=== PATIENT | male | born 1960 | race Asian ===

== ENCOUNTER 2016-09-16 14:24 | Emergency (ER) | payer OTHER ==
[~2016-09-16] VITALS: Ht 152.4 cm; Wt 102.1 kg
[~2016-09-16 14:24] MED LIST: ALLEGRA ALRG180 M1 PO; AMOX500C85 PO; ASA LO-DOSE81 MG PO; BENICAR HCT1 TA2 PO; CYCL10TA35 PO; FLONASE0.05 %; FLUT0.05 NAS; MEDROL DOSEPAK4 MG OR; NEXIUM40 M1 PO; PREVACID30 MG PO; SYNTHROID50 MCG PO; VIAGRA50 MG OR; Z-PAK PO; ZOCOR40 MG PO
[2016-09-16 15:15] LABS: PLATELET COUNT 185 K/uL (142-355)
[2016-09-16 15:31] LABS: POTASSIUM 2.9 mmol/L (3.6-5.2)
[2016-09-16 15:50] VITALS: BP 140/82; TEMP 98.1
[2016-09-25] MEDS ORDERED: CLARITIN10 M1 PO (14:18)
[2016-09-25] MEDS ORDERED: HYZAAR1 TA2 PO (14:20)
[2016-09-25] MEDS ORDERED: ALBU90AE13 INH (14:22)
[2016-09-25] MEDS ORDERED: ZANTAC300 MG PO (14:24)
[2016-09-25] MEDS ORDERED: VITAMIN D35000 UNI1 PO (14:24)
== END 2016-09-16 15:51 | disposition home or self-care (01) ==
LOC: ED 14:24
DX: B34.9 Viral infection, unspecified (principal)
CPT/HCPCS: 36415; 80053; 81000; 85027; 87081; 87804; 87880; 99283

== ENCOUNTER 2016-09-25 12:57 | Observation (INO) | payer OTHER ==
[~2016-09-25] VITALS: Ht 175.3 cm; Wt 100.4 kg
[2016-09-25 13:48] VITALS: BP 153/94; TEMP 99.4; Ht 175.3 cm; Wt 100.4 kg
[2016-09-25] MEDS ORDERED: CLARITIN10 M1 PO ×2 (14:18)
[2016-09-25] MEDS ORDERED: HYZAAR1 TA2 PO ×2 (14:20)
[2016-09-25] MEDS ORDERED: ALBU90AE13 INH ×2 (14:22)
[2016-09-25 14:23] LABS: PLATELET COUNT 211 K/uL (142-355)
[2016-09-25] MEDS ORDERED: VITAMIN D35000 UNI1 PO ×2 (14:24)
[2016-09-25] MEDS ORDERED: ZANTAC300 MG PO ×2 (14:24)
[2016-09-25 14:47] LABS: POTASSIUM 3.2 mmol/L (3.6-5.2); SODIUM 136 mmol/L (136-145)
[2016-09-25 15:54] VITALS: BP 172/69; TEMP 98.9
[2016-09-25 21:11] VITALS: BP 169/111; TEMP 99
[2016-09-26 00:29] VITALS: BP 149/65; TEMP 99.2
[2016-09-26 04:00] VITALS: BP 133/87; TEMP 99.2
[2016-09-26 07:55] VITALS: BP 150/91; TEMP 98.6
[2016-09-26 11:09] LABS: POTASSIUM 2.5 mmol/L (3.6-5.2); SODIUM 135 mmol/L (136-145)
[2016-09-26 11:10] LABS: PLATELET COUNT 187 K/uL (142-355)
[2016-09-26 12:29] VITALS: BP 162/87; TEMP 98.2
[2016-09-26 15:47] VITALS: BP 163/87; TEMP 98.6
[2016-09-26 19:44] VITALS: BP 149/85; TEMP 99.3
[2016-09-27] VITALS: BP 149/78; TEMP 98.9
[2016-09-27 04:00] VITALS: BP 140/71; TEMP 98.6
[2016-09-27 08:03] VITALS: BP 147/83; TEMP 99
[2016-09-27 08:21] LABS: PLATELET COUNT 181 K/uL (142-355)
[2016-09-27 08:49] LABS: POTASSIUM 3.4 mmol/L (3.6-5.2)
[2016-09-27 12:00] VITALS: BP 144/82; TEMP 98.7
== END 2016-09-27 16:55 | disposition home or self-care (01) ==
LOC: MED/SURG 12:57
PROVIDERS: ADMIT Family Medicine
DX: J20.9 Acute bronchitis, unspecified (principal); J01.11 Acute recurrent frontal sinusitis; R53.83 Other fatigue; I10 Essential (primary) hypertension; J02.9 Acute pharyngitis, unspecified
CPT/HCPCS: 36415; 36591; 80053; 83735; 85027; 87040; 87070; 87077; 87186; 87205; 93005; 94640; 94664; 94760; 96365; 96366; 96367; 99220; G0378; G0379; J3475; J3480

== ENCOUNTER 2016-10-01 16:58 | Emergency (ER) | payer OTHER ==
[~2016-10-01] VITALS: Ht 175.3 cm; Wt 102.1 kg
[~2016-10-01 16:58] MED LIST changes: +ALBU90AE13 INH; +CLARITIN10 M1 PO; +HYZAAR1 TA2 PO; +VITAMIN D35000 UNI1 PO; +ZANTAC300 MG PO
[2016-10-01 17:16] VITALS: TEMP 98.9
[2016-10-01 18:55] VITALS: BP 147/90
== END 2016-10-01 18:55 | disposition home or self-care (01) ==
LOC: ED 16:58
DX: M54.31 Sciatica, right side (principal)
CPT/HCPCS: 96372; 99283; J1100; J1885; J2360

== ENCOUNTER 2016-11-03 15:36 | Emergency (ER) | payer OTHER ==
[~2016-11-03] VITALS: Ht 172.7 cm; Wt 102.1 kg
[2016-11-03 16:52] LABS: PLATELET COUNT 196 K/uL (142-355)
[2016-11-03 19:06] VITALS: BP 170/92; TEMP 98.7
== END 2016-11-03 19:06 | disposition home or self-care (01) ==
LOC: ED 15:36
DX: M50.322 Other cervical disc degeneration at C5-C6 level (principal); M50.323 Other cervical disc degeneration at C6-C7 level; M51.37 Other intervertebral disc degeneration, lumbosacral region; E87.6 Hypokalemia
CPT/HCPCS: 36415; 80053; 85027; 99283; J1885

== ENCOUNTER 2017-03-31 16:35 | Emergency (ER) | payer OTHER ==
[~2017-03-31] VITALS: Ht 175.3 cm; Wt 100.7 kg
[2017-03-31 16:49] VITALS: BP 152/97; TEMP 99.8
== END 2017-03-31 18:05 | disposition home or self-care (01) ==
LOC: ED 16:35
DX: M54.5 Low back pain (principal); M54.31 Sciatica, right side; M47.896 Other spondylosis, lumbar region
CPT/HCPCS: 96372; 99283; J1885

== ENCOUNTER 2017-06-05 08:12 | Emergency (ER) | payer OTHER ==
[~2017-06-05] VITALS: Ht 175.3 cm; Wt 95.3 kg
[2017-06-05 08:18] VITALS: TEMP 98.8
[2017-06-05 12:38] VITALS: BP 125/79
== END 2017-06-05 12:39 | disposition home or self-care (01) ==
LOC: ED 08:12
DX: N20.0 Calculus of kidney (principal); R80.8 Other proteinuria; M54.5 Low back pain; R31.9 Hematuria, unspecified
CPT/HCPCS: 36415; 81000; 96360; 96372; 96374; 96375; 99284; J1885; J2405; J2930

== ENCOUNTER 2017-06-09 23:33 | Emergency (ER) | payer OTHER ==
[~2017-06-09] VITALS: Ht 175.3 cm; Wt 101.6 kg
[2017-06-10 00:27] VITALS: BP 182/94; TEMP 98.1
== END 2017-06-10 00:27 | disposition home or self-care (01) ==
LOC: ED 23:33
DX: M89.9 Disorder of bone, unspecified (principal); N20.0 Calculus of kidney; I10 Essential (primary) hypertension
CPT/HCPCS: 96372; 99283; J1885

== ENCOUNTER 2017-06-30 18:30 | Emergency (ER) | payer OTHER ==
[~2017-06-30] VITALS: Ht 175.3 cm; Wt 97.1 kg
[2017-06-30 19:02] VITALS: BP 154/94; TEMP 99
== END 2017-06-30 19:10 | disposition home or self-care (01) ==
LOC: ED 18:30
DX: M54.5 Low back pain (principal); N20.0 Calculus of kidney
CPT/HCPCS: 96372; 99283; J1885; J2550

== ENCOUNTER 2017-09-28 09:13 | Outpatient (CLI) | payer OTHER | END 2017-09-28 21:05 | disposition home or self-care (01) | LOC: RAD 09:13 | DX: R13.10 Dysphagia, unspecified (principal) ==

== ENCOUNTER 2019-06-20 09:30 | Inpatient (IN) | payer OTHER ==
[~2019-06-20] VITALS: Ht 175.3 cm; Wt 95.5 kg
[2019-06-20] MEDS ORDERED: TAMS0.4C PO (11:02)
[2019-06-20] MEDS ORDERED: ONDA4TAB3 PO (11:03)
[2019-06-20] MEDS ORDERED: ZYRTEC ALLERGY10 M1 PO (11:04)
[2019-06-20] MEDS ORDERED: CARV3.12 PO (11:05)
[2019-06-20] MEDS ORDERED: HYDR5TAB9 PO (11:06)
[2019-06-20] MEDS ORDERED: LISI20TA11 PO (11:07)
[2019-06-20] MEDS ORDERED: OMEPRAZOLE40 MG PO (11:08)
[2019-06-20] MEDS ORDERED: SPRITAM500 MG PO (11:09)
[2019-06-20] MEDS ORDERED: POTASSIUM CHLO20 ME1 PO (11:11)
[2019-06-20] MEDS ORDERED: AMLODIPINE BESYLATE PO (11:11)
[2019-06-20] MEDS ORDERED: DEXAMETHASON2 MG PO (11:14)
[2019-06-20] MEDS ORDERED: MAGNESIUM250 M1 PO (11:16)
[2019-06-20 11:17] LABS: PLATELET COUNT 158 K/uL (142-355)
[2019-06-20 11:31] LABS: POTASSIUM 3.8 mmol/L (3.6-5.2)
[2019-06-20 12:48] VITALS: BP 132/87; TEMP 98.4; Ht 175.3 cm; Wt 95.5 kg
[2019-06-20 21:06] VITALS: BP 141/93; TEMP 98.5
[2019-06-21 08:00] VITALS: BP 144/88; TEMP 98
[2019-06-21 19:59] VITALS: BP 135/88; TEMP 98.4
[2019-06-22 08:00] VITALS: BP 149/87; TEMP 98.7
[2019-06-22 20:00] VITALS: BP 113/58; TEMP 98.3
[2019-06-23] VITALS: BP 105/66; TEMP 98.2
[2019-06-23 04:00] VITALS: BP 121/76
[2019-06-23 08:00] VITALS: BP 123/88; TEMP 98.3
[2019-06-23 20:00] VITALS: BP 110/57; TEMP 98.1
[2019-06-24 08:12] VITALS: BP 118/62; TEMP 98.3
[2019-06-24 20:00] VITALS: BP 129/85; TEMP 99.9
[2019-06-25 08:30] VITALS: BP 125/73; TEMP 98.2
[2019-06-25 20:00] VITALS: BP 98/62; TEMP 98.4
[2019-06-26 08:00] VITALS: BP 122/79; TEMP 98
[2019-06-26 20:00] VITALS: BP 129/84; TEMP 99.4
[2019-06-27 08:00] VITALS: BP 119/69; TEMP 98.2
[2019-06-27 20:00] VITALS: BP 104/63; TEMP 99.8
[2019-06-28 08:00] VITALS: BP 111/77; TEMP 97.6
[2019-06-28 20:00] VITALS: BP 97/76; TEMP 98.6
[2019-06-29 08:00] VITALS: BP 109/75; TEMP 99
[2019-06-29 20:00] VITALS: BP 130/77; TEMP 98.8
[2019-06-30 08:00] VITALS: BP 107/66; TEMP 98.6
[2019-06-30 20:00] VITALS: BP 117/70; TEMP 99.9
[2019-06-30 20:09] VITALS: BP 117/70; TEMP 99.9
[2019-07-01 08:00] VITALS: BP 136/82; TEMP 98.4
[2019-07-01 20:00] VITALS: BP 108/70; TEMP 98.7
[2019-07-02 08:00] VITALS: BP 169/71; TEMP 98.1
[2019-07-02 20:00] VITALS: BP 107/72; TEMP 98.6
[2019-07-03 08:00] VITALS: BP 105/72; TEMP 98.1
[2019-07-03 19:44] VITALS: BP 112/71; TEMP 98.6
[2019-07-04 08:00] VITALS: BP 115/68; TEMP 98.9
[2019-07-04 20:00] VITALS: BP 128/80; TEMP 99.1
[2019-07-05 08:00] VITALS: BP 98/63; TEMP 98.2
[2019-07-05 20:00] VITALS: BP 125/77; TEMP 98.7
[2019-07-06 08:00] VITALS: BP 117/80; TEMP 98.9
[2019-07-06 20:00] VITALS: BP 103/68; TEMP 98.8
[2019-07-07 08:00] VITALS: BP 119/63; TEMP 98.8
[2019-07-07 20:00] VITALS: BP 122/63; TEMP 98.8
[2019-07-08 08:00] VITALS: BP 118/73; TEMP 98.5
[2019-07-08 20:00] VITALS: BP 116/65; TEMP 99.1
[2019-07-09 08:00] VITALS: BP 125/80; TEMP 98.4
[2019-07-09 20:00] VITALS: BP 105/64; TEMP 98.8
[2019-07-10 08:00] VITALS: BP 137/64; TEMP 97.9
== END 2019-07-10 11:16 | disposition home or self-care (01) | DRG 948 ==
LOC: MED/SURG 09:30
PROVIDERS: ADMIT Family Medicine
DX: R53.1 Weakness (principal); C34.92 Malignant neoplasm of unspecified part of left bronchus or lung; C34.12 Malignant neoplasm of upper lobe, left bronchus or lung; R26.89 Other abnormalities of gait and mobility; E11.9 Type 2 diabetes mellitus without complications; I10 Essential (primary) hypertension; E03.8 Other specified hypothyroidism; D64.89 Other specified anemias; I95.89 Other hypotension; Z85.841 Personal history of malignant neoplasm of brain; J38.01 Paralysis of vocal cords and larynx, unilateral
CPT/HCPCS: 80053; 81000; 82947; 85027; 87081; J1815